=== PATIENT | female | born 1965 | race Caucasian/White ===

== ENCOUNTER 2020-12-09 10:14 | Day surgery (SDC) | payer BC ==
[2020-12-07 12:06] VITALS: BMI 38.4
[2020-12-09] MEDS ORDERED: LIDOCAINE HCL/PF 2% SDV 5ML VIAL ONE (10:39)
[2020-12-09] MEDS ORDERED: PROPOFOL 20 ML ONE ×2 (10:39)
[2020-12-09 14:36] VITALS: TEMP 97.2
[2020-12-09 14:39] VITALS: PULSE 67
[2020-12-09 14:46] VITALS: BP 97/58
== END 2020-12-09 13:00 | disposition home or self-care (01) ==
LOC: FASU-ENDO 10:14
PROVIDERS: ATTEND Internal Medicine Gastroenterology
PROC: 0DB78ZX Excision of Stomach, Pylorus, Via Natural or Artificial Opening Endoscopic, Diagnostic (ICD-10-PCS; 2020-12-09)
PROC: 0DB48ZX Excision of Esophagogastric Junction, Via Natural or Artificial Opening Endoscopic, Diagnostic (ICD-10-PCS; 2020-12-09)
PROC: 0DB98ZX Excision of Duodenum, Via Natural or Artificial Opening Endoscopic, Diagnostic (ICD-10-PCS; principal; 2020-12-09 11:43)
DX: K22.8 Other specified diseases of esophagus (principal); K29.70 Gastritis, unspecified, without bleeding; K31.89 Other diseases of stomach and duodenum
CPT/HCPCS: 88305-TC; 88342-TC

== ENCOUNTER 2021-02-24 10:40 | Day surgery (SDC) | payer BC ==
[2021-02-18 12:34] VITALS: BMI 38.4
[2021-02-24] MEDS ORDERED: LIDOCAINE HCL/PF 2% SDV 5ML VIAL ONE (11:54)
[2021-02-24 12:49] VITALS: TEMP 97.7
[2021-02-24 14:41] VITALS: BP 115/81; PULSE 68
== END 2021-02-24 13:10 | disposition home or self-care (01) ==
LOC: FASU-ENDO 10:40
PROVIDERS: ATTEND Internal Medicine Gastroenterology
PROC: 0DJD8ZZ Inspection of Lower Intestinal Tract, Via Natural or Artificial Opening Endoscopic (ICD-10-PCS; principal; 2021-02-24 12:08)
DX: K64.0 First degree hemorrhoids (principal); K64.8 Other hemorrhoids